=== PATIENT | male | born 1965 | race Caucasian/White ===

== ENCOUNTER 2016-11-10 12:16 | Outpatient (CLI) | payer MEDICAID | END 2016-11-10 12:17 | disposition home or self-care (01) | DX: R73.09 Other abnormal glucose (principal) ==

== ENCOUNTER 2016-12-18 | Outpatient (CLI) | payer MEDICAID | END 2016-12-18 11:49 | disposition home or self-care (01) | DX: R00.1 Bradycardia, unspecified (principal) ==

== ENCOUNTER 2017-03-25 10:40 | Outpatient (CLI) | payer MEDICAID ==
[2017-03-25 18:16] LABS: ALBUMIN/GLOBULIN RATIO 1.2 (1.0-2.2); BILIRUBIN,TOTAL 0.6 mg/dL (0.2-1.0); BUN - BLOOD UREA NITROGEN 22 mg/dL (6-20); CARBON DIOXIDE - CO2 25 mmol/L (21-32); CHLORIDE 107 mmol/L (101-111); CHOL/HDL RATIO 3.9 (<5.0); CHOLESTEROL 137 mg/dL; CREATININE 0.9 mg/dL (0.6-1.2); GFR - MDRD 89 (>89); GLUCOSE 106 mg/dL (70-100); HDL CHOLESTEROL 35 mg/dL; LDL/HDL RATIO 2.4 (<3.6); POTASSIUM 4.1 mmol/L (3.5-5.0); SODIUM 138 mmol/L (135-145); TOTAL PROTEIN 6.9 g/dL (6.7-8.2); TRIGLYCERIDES 97 mg/dL; VLDL CHOLESTEROL 19 mg/dL
[2017-03-25 18:22] LABS: BASOPHILS % (AUTO) 0.4 %; EOSINOPHILS # (AUTO) 0.1 10^3/uL (0.0-0.7); EOSINOPHILS % (AUTO) 1.4 %; HCT - HEMATOCRIT 43.8 % (42.0-52.0); HGB - HEMOGLOBIN 15.1 g/dL (14.0-18.0); LYMPHOCYTES # (AUTO) 2.2 10^3/uL (1.5-3.5); LYMPHOCYTES % (AUTO) 26.3 %; MEAN CORPUSCULAR HEMOGLOBIN 29.7 pg (27.0-31.0); MEAN CORPUSCULAR HGB CONC 34.4 g/dL (32.0-36.0); MEAN CORPUSCULAR VOLUME 86.2 fL (80.0-94.0); MEAN PLATELET VOLUME 8.1 fL (7.4-11.4); MONOCYTES # (AUTO) 0.6 10^3/uL (0.0-1.0); NEUTROPHILS # (AUTO) 5.4 10^3/uL (1.5-6.6); NEUTROPHILS % (AUTO) 64.9 %; NUCLEATED RED BLOOD CELLS AUTO 0.1 /100WBC; RED BLOOD COUNT 5.08 10^6/uL (4.70-6.10); RED CELL DISTRIBUTION WIDTH 13.6 % (12.0-15.0); UNCORRECTED WHITE BLOOD COUNT 8.3 x10^3/uL; WHITE BLOOD COUNT 8.3 x10^3/uL (4.8-10.8)
[2017-03-25 18:29] LABS: HEMOGLOBIN A1C 0.62 g/dL
== END 2017-03-25 10:41 | disposition home or self-care (01) ==
LOC: LAB.F 10:40
PROVIDERS: ATTEND Nurse Practitioner Family
DX: R35.1 Nocturia (principal); Z13.220 Encounter for screening for lipoid disorders; R73.09 Other abnormal glucose; Z12.5 Encounter for screening for malignant neoplasm of prostate
CPT/HCPCS: 36415; 80050; 80061; 83036; 84153

== ENCOUNTER 2017-05-04 08:00 | Outpatient (CLI) | payer MEDICAID | END 2017-05-04 08:01 | disposition home or self-care (01) | DX: R73.09 Other abnormal glucose (principal) ==

== ENCOUNTER 2017-09-07 08:00 | Outpatient (CLI) | payer MEDICAID ==
[2017-09-07 18:49] LABS: ALBUMIN/GLOBULIN RATIO 1.3 (1.0-2.2); BILIRUBIN,TOTAL 0.7 mg/dL (0.2-1.0); CALCIUM 9.6 mg/dL (8.5-10.3); CREATININE 1.1 mg/dL (0.6-1.2); POTASSIUM 3.7 mmol/L (3.5-5.0); TOTAL PROTEIN 7.3 g/dL (6.7-8.2)
[2017-09-07 19:12] LABS: HEMOGLOBIN A1C 0.6 g/dL
== END 2017-09-07 08:01 | disposition home or self-care (01) ==
LOC: LAB.S 08:00
PROVIDERS: ATTEND Nurse Practitioner Family
DX: R60.0 Localized edema (principal); R73.03 Prediabetes
CPT/HCPCS: 36415; 80053; 83036; 83880

== ENCOUNTER 2018-02-03 12:00 | Outpatient (CLI) | payer MEDICAID ==
--- NOTE | 2018-02-03 13:27 | XRAY Report ---
COMPLETE CERVICAL SPINE WITH FLEXION AND EXTENSION: 02/03/2018 CLINICAL INDICATION: Neck stiffness. FINDINGS: AP, lateral neutral, lateral flexion, lateral extension, oblique, odontoid views of the cervical spine were obtained. There is no evidence of fracture or subluxation. No abnormal motion is seen on flexion or extension. Degenerative disc disease is present, with disc space narrowing worst at C5-6. There is mild bilateral osseous neural foraminal narrowing at C5-6 and C6-7. The prevertebral soft tissues appear unremarkable. IMPRESSION: DEGENERATIVE CHANGES, WITH MILD OSSEOUS NEURAL FORAMINAL NARROWING. NO EVIDENCE OF ABNORMAL MOTION ON FLEXION OR EXTENSION. TD: 02/03/2018 13:26
== END 2018-02-03 12:01 | disposition home or self-care (01) ==
LOC: DI 12:00
PROVIDERS: ATTEND Nurse Practitioner Family
DX: M50.30 Other cervical disc degeneration, unspecified cervical region (principal)
CPT/HCPCS: 72052

== ENCOUNTER 2018-02-24 13:25 | Outpatient (CLI) | payer MEDICAID ==
[2018-02-24 19:59] LABS: CHOL/HDL RATIO 4.5 (<5.0); CHOLESTEROL 154 mg/dL; HDL CHOLESTEROL 34 mg/dL; LDL CHOLESTEROL,CALCULATED 101 mg/dL; VLDL CHOLESTEROL 19 mg/dL
[2018-02-24 20:08] LABS: HB2 TOTAL 17.2 g/dL; HEMOGLOBIN A1C 0.63 g/dL; HEMOGLOBIN A1C % 5.5 % (4.6-6.2)
== END 2018-02-24 13:26 | disposition home or self-care (01) ==
LOC: LAB.N 13:25
PROVIDERS: ATTEND Registered Nurse
DX: F25.9 Schizoaffective disorder, unspecified (principal)
CPT/HCPCS: 36415; 80061; 83036; 83721

== ENCOUNTER 2019-05-23 08:00 | Outpatient (CLI) | payer MEDICAID ==
[2019-05-23 18:33] LABS: BASOPHILS # (AUTO) 0.1 10^3/uL (0.0-0.1); BASOPHILS % (AUTO) 0.6 %; EOSINOPHILS # (AUTO) 0.1 10^3/uL (0.0-0.7); EOSINOPHILS % (AUTO) 1.4 %; HGB - HEMOGLOBIN 14.7 g/dL (14.0-18.0); LYMPHOCYTES # (AUTO) 2.5 10^3/uL (1.5-3.5); MEAN CORPUSCULAR HEMOGLOBIN 29.2 pg (27.0-31.0); MEAN CORPUSCULAR HGB CONC 33.1 g/dL (32.0-36.0); MEAN CORPUSCULAR VOLUME 88.3 fL (80.0-94.0); MEAN PLATELET VOLUME 9.3 fL (7.4-11.4); MONOCYTES # (AUTO) 0.6 10^3/uL (0.0-1.0); MONOCYTES % (AUTO) 6.1 %; NEUTROPHILS # (AUTO) 5.8 10^3/uL (1.5-6.6); NEUTROPHILS % (AUTO) 64.2 %; PLT - PLATELET COUNT 303 10^3/uL (130-450); RED BLOOD COUNT 5.03 10^6/uL (4.70-6.10); RED CELL DISTRIBUTION WIDTH 13.2 % (12.0-15.0); WHITE BLOOD COUNT 9.1 x10^3/uL (4.8-10.8)
[2019-05-23 18:43] LABS: HEMOGLOBIN A1C 0.59 g/dL; HEMOGLOBIN A1C % 5.5 % (4.6-6.2)
[2019-05-23 18:44] LABS: ALBUMIN 3.8 g/dL (3.2-5.5); ALBUMIN/GLOBULIN RATIO 1.1 (1.0-2.2); ALKALINE PHOSPHATASE 61 IU/L (42-121); ALT ALANINE AMINOTRANSFERASE 29 IU/L (10-60); AST ASPARTATE AMINOTRANSFERASE 22 IU/L (10-42); BILIRUBIN,TOTAL 0.7 mg/dL (0.2-1.0); BUN - BLOOD UREA NITROGEN 17 mg/dL (6-20); CALCIUM 9.1 mg/dL (8.5-10.3); CARBON DIOXIDE - CO2 24 mmol/L (21-32); CHLORIDE 103 mmol/L (101-111); CHOL/HDL RATIO 5.4 (<5.0); CHOLESTEROL 157 mg/dL; GFR - MDRD 78 (>89); GLUCOSE 113 mg/dL (70-100); HDL CHOLESTEROL 29 mg/dL; LDL CHOLESTEROL,CALCULATED 93 mg/dL; LDL/HDL RATIO 3.2 (<3.6); SODIUM 137 mmol/L (135-145); TOTAL PROTEIN 7.4 g/dL (6.7-8.2); VLDL CHOLESTEROL 35 mg/dL
== END 2019-05-23 08:01 | disposition home or self-care (01) ==
LOC: LAB.N 08:00
PROVIDERS: ATTEND Psychiatry & Neurology Psychiatry
DX: F33.3 Major depressive disorder, recurrent, severe with psychotic symptoms (principal); F43.10 Post-traumatic stress disorder, unspecified
CPT/HCPCS: 36415; 80053; 80061; 83036; 83721; 85025

== ENCOUNTER 2019-05-25 | Outpatient (CLI) | payer MEDICAID | END 2019-05-25 15:25 | disposition home or self-care (01) | DX: M47.817 Spondylosis without myelopathy or radiculopathy, lumbosacral region (principal); M51.36 Other intervertebral disc degeneration, lumbar region; M51.37 Other intervertebral disc degeneration, lumbosacral region | CPT/HCPCS: 72110 ==

== ENCOUNTER 2019-06-24 08:00 | Outpatient (CLI) | payer MEDICAID | END 2019-06-24 23:59 | disposition home or self-care (01) | LOC: LAB.N 08:00 | PROVIDERS: ATTEND Family Medicine | DX: Z12.5 Encounter for screening for malignant neoplasm of prostate (principal) | CPT/HCPCS: 36415; 84153 ==

== ENCOUNTER 2020-10-20 13:17 | Emergency (ER) | payer MEDICAID ==
[2020-10-20] MEDS ORDERED: BUFFERED LIDOCAINE 10 ML SYRINGE SUBQ STA (14:51)
[2020-10-20] MEDS ORDERED: AMOX/CLAV 875 MG/125 MG TABLET PO STA (14:53)
--- NOTE | 2020-10-20 15:43 | ED Physician Documentation ---
History of Present Illness - Stated complaint Stated Complaint: LT FACE SWELLING - Chief complaint Chief Complaint: Heent - History obtained from History obtained from: Patient - Additonal information Additional information: 55-year-old man with poor dentition presents with left lower facial swelling a/w left lower molar pain, constant aching/throbbing, nonradiating, gradual onset over the past couple days.Denies fevers, difficulty secretions, swallowing difficulty, shortness of breath or stridor. Review of Systems Constitutional: denies: Fever, Chills Throat: denies: Sore throat Respiratory: denies: Dyspnea, Cough, Wheezing PD PAST MEDICAL HISTORY - Past Medical History Past Medical History: Yes Cardiovascular: None, Other Respiratory: COPD, Sleep apnea, Other Neuro: None GI: Ulcers, Hiatal hernia, Chronic constipation, Hemorrhoids : None HEENT: None Psych: Depression Musculoskeletal: None, Other Derm: None - Past Surgical History Past Surgical History: Yes General: Colonoscopy, EGD - Present Medications Home Medications: Ambulatory Orders Medication Instructions Recorded Confirmed Albuterol [Ventolin Hfa] 1 inhaler PO DAILY PRN 05/18/15 12/25/15 Fluticasone 44 Mcg [Flovent] 1 puffs PO DAILY 08/13/16 08/13/16 Fluticasone [Flonase] 1 sprays CLINT BID PRN #1 bottle 08/13/16 Amox/Clav 875/125 [Augmentin] 1 each PO Q12H 7 Days #14 tablet 10/20/20 Omeprazole 10/20/20 Paliperidone [Invega] 3 mg PO 10/20/20 busPIRone [Buspar] 10/20/20 traZODone [Desyrel] 10/20/20 - Allergies Allergies/Adverse Reactions: Allergies Allergy/AdvReac Type Severity Reaction Status Date / Time haloperidol [From Haldol] Allergy Anaphylaxis Verified 10/20/20 13:26 metformin Allergy Cramps Verified 10/20/20 13:26 - Social History Does the pt smoke?: No Smoking Status: Never smoker Does the pt drink ETOH?: No Does the pt have substance abuse?: No - Immunizations Immunizations are current?: Yes - POLST Patient has POLST: No PD ED PE NORMAL - Vitals Vital signs reviewed: Yes - General General: Alert and oriented X 3 - HEENT HEENT: PERRL, EOMI, Moist mucous membranes, Pharynx benign, Other (Poor dentition. Multiple missing teeth. Left lower molar odontogenic swelling and fluctuance.) Results - Vitals Vitals: Vital Signs - 24 hr 10/20/20 13:22 Temperature 35.9 C L Heart Rate 68 Respiratory 20 Rate Blood Pressure 126/83 H O2 Saturation 96 Oxygen O2 Source Room air Procedures - Abscess I&D (location) left Preparation: Lidocaine 1% Incision: Incised with scalpel, Purulent drainage Other: Pt tolerated well, Antibiotic prescribed, Other (Left lower molar odontogenic abscess) PD MEDICAL DECISION MAKING - ED course ED course: 55-year-old man presented with dental abscess which we incised and drained. He will follow up with his primary doctor. Antibiotics prescribed. Departure - Departure Disposition: , Self Care Clinical Impression: Dental abscess Condition: Good Instructions: ED Abscess Dental Prescriptions: Amox/Clav 875/125 [Augmentin] 1 each PO Q12H 7 Days #14 tablet Comments: You have been seen for a dental abscess. Return to the ED for any new or wor sening symptoms. Follow-up with your dentist on Thursday.
[2020-10-20 15:56] VITALS: BP 160/93
== END 2020-10-20 16:00 | disposition home or self-care (01) ==
LOC: ED 13:17
DX: K04.7 Periapical abscess without sinus (principal)
CPT/HCPCS: 41800; 99282; 99283; A9270

== ENCOUNTER 2021-04-25 14:08 | Outpatient (CLI) | payer MEDICAID ==
[2021-04-25 17:54] LABS: BASOPHILS # (AUTO) 0.1 10^3/uL (0.0-0.1); BASOPHILS % (AUTO) 0.6 %; EOSINOPHILS # (AUTO) 0.2 10^3/uL (0.0-0.7); EOSINOPHILS % (AUTO) 1.8 %; HCT - HEMATOCRIT 43.2 % (42.0-52.0); HGB - HEMOGLOBIN 14.9 g/dL (14.0-18.0); LYMPHOCYTES # (AUTO) 2.9 10^3/uL (1.5-3.5); LYMPHOCYTES % (AUTO) 28.1 %; MEAN CORPUSCULAR HEMOGLOBIN 29.3 pg (27.0-31.0); MEAN CORPUSCULAR HGB CONC 34.5 g/dL (32.0-36.0); MEAN PLATELET VOLUME 9.4 fL (7.4-11.4); MONOCYTES # (AUTO) 0.7 10^3/uL (0.0-1.0); MONOCYTES % (AUTO) 6.4 %; NEUTROPHILS # (AUTO) 6.4 10^3/uL (1.5-6.6); PLT - PLATELET COUNT 295 10^3/uL (130-450); RED BLOOD COUNT 5.08 10^6/uL (4.70-6.10); RED CELL DISTRIBUTION WIDTH 13.4 % (12.0-15.0); WHITE BLOOD COUNT 10.2 x10^3/uL (4.8-10.8)
[2021-04-25 18:13] LABS: ALBUMIN/GLOBULIN RATIO 1.1 (1.0-2.2); ALKALINE PHOSPHATASE 58 IU/L (42-121); ALT ALANINE AMINOTRANSFERASE 35 IU/L (10-60); AST ASPARTATE AMINOTRANSFERASE 26 IU/L (10-42); BILIRUBIN,TOTAL 0.8 mg/dL (0.2-1.0); BUN - BLOOD UREA NITROGEN 16 mg/dL (6-20); CALCIUM 9.1 mg/dL (8.5-10.3); CARBON DIOXIDE - CO2 25 mmol/L (21-32); CHLORIDE 103 mmol/L (101-111); CHOL/HDL RATIO 4.9 (<5.0); CHOLESTEROL 153 mg/dL; GFR - MDRD 78 (>89); GLUCOSE 107 mg/dL (70-100); HDL CHOLESTEROL 31 mg/dL; LDL CHOLESTEROL,CALCULATED 88 mg/dL; LDL/HDL RATIO 2.8 (<3.6); POTASSIUM 3.9 mmol/L (3.5-5.0); SODIUM 136 mmol/L (135-145); TOTAL PROTEIN 7.5 g/dL (6.7-8.2); TRIGLYCERIDES 168 mg/dL; VLDL CHOLESTEROL 34 mg/dL
[2021-04-25 18:27] LABS: THYROID STIMULATING HORMONE 1.19 uIU/mL (0.34-5.60)
[2021-04-25 20:44] LABS: ESTIMATED AVERAGE GLUCOSE 126 mg/dL (70-100)
== END 2021-04-25 23:59 | disposition home or self-care (01) ==
LOC: LAB.WCP 14:08
PROVIDERS: ATTEND Family Medicine
DX: Z79.899 Other long term (current) drug therapy (principal); Z12.5 Encounter for screening for malignant neoplasm of prostate
CPT/HCPCS: 36415; 80050; 80061; 83036; 83721; 84153

== ENCOUNTER 2021-09-27 22:39 | Outpatient (CLI) | payer MEDICAID | END 2021-09-27 22:40 | disposition EMS.NT | LOC: EMS 22:39 | DX: F41.9 Anxiety disorder, unspecified (principal) ==

== ENCOUNTER 2021-10-01 16:30 | Outpatient (CLI) | payer MEDICAID ==
[2021-10-01 22:14] LABS: BILIRUBIN,URINE NEGATIVE (NEGATIVE); GLUCOSE, URINE (UA) NEGATIVE (NEGATIVE); KETONES,URINE (UA) NEGATIVE (NEGATIVE); LEUKOCYTE ESTERASE, URINE NEGATIVE (NEGATIVE); NITRITE,URINE NEGATIVE (NEGATIVE); OCCULT BLOOD,URINE NEGATIVE (NEGATIVE); PROTEIN,URINE NEGATIVE (NEGATIVE); UROBILINOGEN,URINE 0.2 (NORMAL) E.U./dL (NORMAL)
[2021-10-01 22:33] LABS: AMORPHOUS SEDIMENT,UR Marked /LPF; BACTERIA,URINE None Seen /HPF (None Seen); CLARITY,URINE CLOUDY (CLEAR); RBC,URINE 0-5 /HPF (0-5); SQUAMOUS EPITHELIAL CELL,UR NONE SEEN (<= Few); WBC,URINE 0-3 /HPF (0-3)
== END 2021-10-01 23:59 | disposition home or self-care (01) ==
LOC: LAB.WCP 16:30
PROVIDERS: ATTEND Family Medicine
DX: R35.0 Frequency of micturition (principal)
CPT/HCPCS: 81001; 87086

== ENCOUNTER 2021-11-08 08:39 | Outpatient (CLI) | payer MEDICAID ==
--- NOTE | 2021-11-11 08:57 | Ultrasound Report ---
LIMITED ULTRASOUND OF RIGHT BREAST: 11/08/2021 CLINICAL: Palpable right breast lump. Comparison is made to exam dated: 11/08/2021 mammogram - [facility]. Real-time ultrasound of the right breast retroareolar was performed. Stephens scale images of the real-t rene examination were reviewed. There is a benign irregular area of fibroglandular tissue in the right breast central to the nipple i n the retroareolar region. This correlates as palpated. There are a few prominent retroareolar ducts . The patient denies nipple discharge. IMPRESSION: BENIGN There is no sonographic evidence of malignancy. The irregular area of fibroglandular tissue in the right breast is consistent with benign gynecomasti a. No underlying mass. Exam findings were discussed with the patient. Patient is advised to monitor for significant change. Clinical follow-up is recommended to network security officer for possible underlying cause such as medications a nd liver disease. This exam was interpreted at Station ID: [id number]. Electronically Signed By: Ash Verdugo M.D. slc/:11/08/2021 10:06:59 Ultrasound BI-RADS: 2 Benign BI-RADS CATEGORY: (2) - 2 Unspecified - other recall n/a LATERALITY: (B)
--- NOTE | 2021-11-11 08:57 | Mammography Report ---
MALE BILATERAL DIGITAL DIAGNOSTIC MAMMOGRAM 3D/2D: 11/08/2021 CLINICAL: Baseline exam. Palpable right breast lump. Baseline mammogram. No prior exams were available for comparison. There is a 5.5 cm x 4.8 cm x 3.6 cm irregular area of fibroglandular tissue with an indistinct margin in the right breast central to the nipple in the retroareolar region. This correlates as palpated a nd to area of tenderness. No other significant masses, calcifications, or other findings are seen in either breast. IMPRESSION: INCOMPLETE: NEEDS ADDITIONAL IMAGING EVALUATION The 5.5 cm irregular area of fibroglandular tissue in the right breast is most consistent with asymme tric gynecomastia. A targeted ultrasound is recommended to exclude underlying mass and will immediately follow. This exam was interpreted at Station ID: [id number]. NOTE: For mammograms, a report in lay terms will be sent to the patient. Approximately 15% of breast malignancies will not be visualized mammographically. In the management of a palpable breast mass, a negative mammogram must not discourage biopsy of a clinically suspicious lesion. Electronically Signed By: Ash Verdugo M.D. slc/:11/08/2021 09:38:57 ACR BI-RADS Category 0: Incomplete 3340F PARENCHYMAL PATTERN: (F) - The breast(s) demonstrate(s) diffuse fatty replacement. BI-RADS CATEGORY: (0) - 0 Ultrasound [id number] Immediate follow-up LATERALITY: (B)
== END 2021-11-08 08:40 | disposition home or self-care (01) ==
LOC: DI 08:39
PROVIDERS: ATTEND Family Medicine
DX: N63.41 Unspecified lump in right breast, subareolar (principal)

== ENCOUNTER 2022-02-05 13:33 | Outpatient (CLI) | payer MEDICAID | END 2022-02-05 13:34 | disposition home or self-care (01) | LOC: NS 13:33 | PROVIDERS: ATTEND Family Medicine | DX: Z71.3 Dietary counseling and surveillance (principal); K31.84 Gastroparesis | CPT/HCPCS: 97802 ==

== ENCOUNTER 2022-03-10 14:36 | Emergency (ER) | payer MEDICAID ==
[2022-03-10 14:44] VITALS: BP 133/90
--- NOTE | 2022-03-10 15:17 | ED Physician Documentation ---
History of Present Illness - Stated complaint Stated Complaint: HAND/JAW SWELLING - Chief complaint Chief Complaint: General - History obtained from History obtained from: Patient - History of Present Illness Timing: Today - Additonal information Additional information: 57-year-old Eloy Duong has a history of schizophrenia and today he was stretching and felt the side of his face and felt a tender mass on the right side and this has persisted and so he is come to the emergency department for evaluation. He has not had a fever associated with this he denies any pain inside of his mouth or any problems with his teeth. He feels that he might have some swelling to his right hand as well. Review of Systems Constitutional: denies: Fever Eyes: denies: Decreased vision Ears: denies: Ear pain Nose: denies: Congestion Throat: denies: Dental pain / toothache, Oral lesions / sores, Sore throat Cardiac: denies: Chest pain / pressure Respiratory: denies: Dyspnea, Cough GI: reports: Vomiting (Every morning at 9 AM secondary to gastroparesis). denies: Abdominal Pain, Diarrhea : denies: Dysuria, Frequency Skin: denies: Rash Musculoskeletal: denies: Neck pain, Back pain, Extremity pain PD PAST MEDICAL HISTORY - Past Medical History Cardiovascular: None, Other Respiratory: COPD, Sleep apnea, Other Neuro: None GI: Ulcers, Hiatal hernia, Chronic constipation, Hemorrhoids : None HEENT: None Psych: Depression Musculoskeletal: None, Other Derm: None - Past Surgical History Past Surgical History: Yes General: Colonoscopy, EGD - Present Medications Home Medications: Ambulatory Orders Medication Instructions Recorded Confirmed Albuterol [Ventolin Hfa] 1 inhaler PO DAILY PRN 05/18/15 12/25/15 Fluticasone 44 Mcg [Flovent] 1 puffs PO DAILY 08/13/16 08/13/16 Fluticasone [Flonase] 1 sprays CLINT BID PRN #1 bottle 08/13/16 Amox/Clav 875/125 [Augmentin] 1 each PO Q12H 7 Days #14 tablet 10/20/20 Omeprazole 10/20/20 Paliperidone [Invega] 3 mg PO 10/20/20 busPIRone [Buspar] 10/20/20 traZODone [Desyrel] 10/20/20 Amox/Clav 875/125 [Augmentin] 1 each PO Q12H #20 tablet 03/10/22 - Allergies Allergies/Adverse Reactions: Allergies Allergy/AdvReac Type Severity Reaction Status Date / Time haloperidol [From Haldol] Allergy Anaphylaxis Verified 03/10/22 14:41 metformin Allergy Cramps Verified 03/10/22 14:41 - Social History Does the pt smoke?: No Smoking Status: Never smoker Does the pt drink ETOH?: No Does the pt have substance abuse?: No - Immunizations Immunizations are current?: Yes - POLST Patient has POLST: No PD ED PE NORMAL - Vitals Vital signs reviewed: Yes (Hypertensive mild) - General General: Alert and oriented X 3, No acute distress, Well developed/nourished - HEENT HEENT: Atraumatic, PERRL, EOMI, Ears normal, Moist mucous membranes, Pharynx benign, Other (There is a broken right lower molar that is nontender and without drainage. Examination inside the mouth is without out tenderness as well. At the angle of the jaw there is a firm palpable mass consistent with a lymph node. There is no overlying erythema there is no fluctuance and mild tenderness) - Neck Neck: Supple, no meningeal sign, No bony TTP - Respiratory Respiratory: No respiratory distress - Derm Derm: Normal color, Warm and dry, No rash - Extremities Extremities: No deformity, Other (I am not able to appreciate any difference between the right and the left hand as far as swelling goes there is no erythema there is no specific tenderness he has full range of motion. 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, No motor deficit, No sensory deficit, Normal speech Eye Opening: Spontaneous Motor: Obeys Commands Verbal: Oriented GCS Score: 15 - Psych Psych: Normal mood, Normal affect Results - Vitals Vitals: Vital Signs - 24 hr 03/10/22 14:41 Temperature 36.5 C Heart Rate 60 Respiratory 16 Rate Blood Pressure 133/90 H O2 Saturation 97 Oxygen O2 Source Room air PD MEDICAL DECISION MAKING - ED course Complexity details: considered differential, d/w patient ED course: 57-year-old male with a swelling at the angle of his jaw appears to have a swollen lymph node he is treated for lymphangitis with a dose of dexamethasone we will place him on some Augmentin. Departure - Departure Disposition: 01 Home, Self Care Clinical Impression: Lymphangitis Condition: Stable Instructions: ED Lymphangitis Follow-Up: Jovana Lim DO [Primary Care Provider] - Prescriptions: Amox/Clav 875/125 [Augmentin] 1 each PO Q12H #20 tablet Comments: Crescencio, today it looks like the small mass you have at the angle of your jaw is a swollen lymph node. We call this lymphangitis and I have given you a dose of dexamethasone which should help us the swelling over the day today. I have prescribed some antibiotic to be taken twice per day as well. This has been E scribed to [facility] in [place]. Our expectation with treatment is reduction in the swelling and resolution of the pain over a 2 to 3-day period of time. If you have worsening of your symptoms despite our treatment come back to see us here in the emergency department.
[2022-03-10] MEDS ORDERED: DEXAMETHASONE 10 MG/ML VIAL PO STA (15:21)
[2022-03-10] MEDS ORDERED: CHERRY SYRUP 10 ML UDC PO ONE (15:21)
== END 2022-03-10 15:31 | disposition home or self-care (01) ==
LOC: ED 14:36
DX: I89.1 Lymphangitis (principal)
CPT/HCPCS: 99282; A9270

== ENCOUNTER 2022-07-30 15:09 | Outpatient (CLI) | payer MEDICAID ==
--- NOTE | 2022-07-30 16:36 | MRI Report ---
PROCEDURE: Lumbar Spine W/O INDICATIONS: L SPINE DJD, HIST OF FALLS TECHNIQUE: Noncontrast sagittal T1 spin echo and T2 fast echo, sagittal STIR, axial T1 and T2 fast spin echo thr ough the lumbar spine. In cases with scoliosis, additional coronal T2 fast spin echo may be performe d. COMPARISON: None. FINDINGS: Image quality: Excellent Alignment: No spondylolisthesis. Marrow: No acute fracture. Scattered endplate degenerative changes. Multilevel disc desiccation and h eight loss, particularly at L3-L4 and L5-S1. Cord: Terminates at L1, which is normal. Soft tissues: Unremarkable Specific levels: T12-L1: No stenosis. L1-L2: Small diffuse disc bulge and mild facet arthropathy. No stenosis. L2-L3: Small diffuse disc bulge and mild facet arthropathy. No stenosis. L3-L4: There is a small posterior disc bulge with a superimposed posterior protrusion. Mild narrowing of the left subarticular recess. The protrusion has an annular fissure. Mild to moderate facet arthr opathy. No neural foraminal stenosis. L4-L5: Small ventral disc bulge. Mild to moderate facet arthropathy. Minimal bilateral neural foramin al narrowing. L5-S1: Diffuse disc bulge, including the right extraforaminal zone. Mild facet arthropathy. No centra l narrowing. IMPRESSION: Overall mild spondylosis as described above. By imaging, L3-L4 is the worst level with m ild left subarticular recess (traversing L4 nerve root), disc bulge and posterior protrusion, and an annular fissure. There might also be right L5-S1 extra foraminal displacement of the exiting L5 nerve root. Reviewed by: Juanpablo Thomas MD on 07/30/2022 4:34 PM PDT Approved by: Juanpablo Thomas MD on 07/30/2022 4:34 PM PDT Station ID: [id number]
== END 2022-07-30 15:10 | disposition home or self-care (01) ==
LOC: DI 15:09
PROVIDERS: ATTEND Nurse Practitioner Family
DX: M51.16 Intervertebral disc disorders with radiculopathy, lumbar region (principal); M51.17 Intervertebral disc disorders with radiculopathy, lumbosacral region; M47.26 Other spondylosis with radiculopathy, lumbar region; M47.27 Other spondylosis with radiculopathy, lumbosacral region

== ENCOUNTER 2022-12-12 15:10 | Outpatient (CLI) | payer MEDICAID ==
[2022-12-12 17:40] LABS: BASOPHILS # (AUTO) 0.1 10^3/uL (0.0-0.1); BASOPHILS % (AUTO) 0.6 %; EOSINOPHILS # (AUTO) 0.2 10^3/uL (0.0-0.7); EOSINOPHILS % (AUTO) 2.5 %; HCT - HEMATOCRIT 42.3 % (42.0-52.0); HGB - HEMOGLOBIN 14.5 g/dL (14.0-18.0); LYMPHOCYTES # (AUTO) 3.1 10^3/uL (1.5-3.5); LYMPHOCYTES % (AUTO) 32.1 %; MEAN CORPUSCULAR HEMOGLOBIN 29.1 pg (27.0-31.0); MEAN CORPUSCULAR HGB CONC 34.3 g/dL (32.0-36.0); MEAN CORPUSCULAR VOLUME 84.8 fL (80.0-94.0); MEAN PLATELET VOLUME 9.1 fL (7.4-11.4); MONOCYTES # (AUTO) 0.6 10^3/uL (0.0-1.0); MONOCYTES % (AUTO) 6.1 %; NEUTROPHILS # (AUTO) 5.7 10^3/uL (1.5-6.6); NEUTROPHILS % (AUTO) 57.7 %; PLT - PLATELET COUNT 335 10^3/uL (130-450); RED BLOOD COUNT 4.99 10^6/uL (4.70-6.10); RED CELL DISTRIBUTION WIDTH 13.4 % (12.0-15.0); WHITE BLOOD COUNT 9.8 x10^3/uL (4.8-10.8)
[2022-12-12 18:03] LABS: ALBUMIN 3.7 g/dL (3.2-5.5); ALBUMIN/GLOBULIN RATIO 1.1 (1.0-2.2); ALKALINE PHOSPHATASE 74 IU/L (42-121); ALT ALANINE AMINOTRANSFERASE 29 IU/L (10-60); AST ASPARTATE AMINOTRANSFERASE 22 IU/L (10-42); BILIRUBIN,TOTAL 0.3 mg/dL (0.2-1.0); BUN - BLOOD UREA NITROGEN 18 mg/dL (6-20); CALCIUM 8.8 mg/dL (8.5-10.3); CARBON DIOXIDE - CO2 23 mmol/L (21-32); CHLORIDE 104 mmol/L (101-111); CHOL/HDL RATIO 5.2 (<5.0); CHOLESTEROL 140 mg/dL; GFR - MDRD 77 (>89); GLUCOSE 109 mg/dL (70-100); HDL CHOLESTEROL 27 mg/dL; LDL CHOLESTEROL,CALCULATED 66 mg/dL; LDL/HDL RATIO 2.4 (<3.6); POTASSIUM 3.7 mmol/L (3.5-5.0); SODIUM 134 mmol/L (135-145); TOTAL PROTEIN 7.2 g/dL (6.7-8.2); TRIGLYCERIDES 237 mg/dL; VLDL CHOLESTEROL 47 mg/dL
[2022-12-12 18:04] LABS: THYROID STIMULATING HORMONE 0.99 uIU/mL (0.34-5.60)
[2022-12-12 22:03] LABS: ESTIMATED AVERAGE GLUCOSE 131 mg/dL (70-100); HEMOGLOBIN A1c% 6.2 % (4.27-6.07)
== END 2022-12-12 15:11 | disposition home or self-care (01) ==
LOC: LAB.N 15:10
PROVIDERS: ATTEND Nurse Practitioner Family
DX: Z00.00 Encounter for general adult medical examination without abnormal findings (principal); R73.03 Prediabetes; Z13.220 Encounter for screening for lipoid disorders
CPT/HCPCS: 36415; 80050; 80061; 83036; 83721; 84153

== ENCOUNTER 2023-08-30 23:50 | Outpatient (CLI) | payer MEDICAID | END 2023-08-30 23:59 | disposition critical access hospital (66) | LOC: EMS 23:50 | DX: R07.89 Other chest pain (principal); R46.4 Slowness and poor responsiveness | CPT/HCPCS: A0425; A0429; A0999 ==

== ENCOUNTER 2023-08-31 00:08 | Emergency (ER) | payer MEDICAID ==
[2023-08-31 00:26] LABS: BASOPHILS # (AUTO) 0.1 10^3/uL (0.0-0.1); BASOPHILS % (AUTO) 0.5 %; EOSINOPHILS # (AUTO) 0.3 10^3/uL (0.0-0.7); EOSINOPHILS % (AUTO) 2.4 %; HCT - HEMATOCRIT 43.8 % (42.0-52.0); HGB - HEMOGLOBIN 14.5 g/dL (14.0-18.0); LYMPHOCYTES # (AUTO) 4.5 10^3/uL (1.5-3.5); LYMPHOCYTES % (AUTO) 39.2 %; MEAN CORPUSCULAR HEMOGLOBIN 28.9 pg (27.0-31.0); MEAN CORPUSCULAR HGB CONC 33.1 g/dL (32.0-36.0); MEAN CORPUSCULAR VOLUME 87.4 fL (80.0-94.0); MEAN PLATELET VOLUME 8.7 fL (7.4-11.4); MONOCYTES # (AUTO) 0.9 10^3/uL (0.0-1.0); MONOCYTES % (AUTO) 7.8 %; NEUTROPHILS # (AUTO) 5.6 10^3/uL (1.5-6.6); NEUTROPHILS % (AUTO) 49.5 %; PLT - PLATELET COUNT 289 10^3/uL (130-450); RED BLOOD COUNT 5.01 10^6/uL (4.70-6.10); RED CELL DISTRIBUTION WIDTH 13.2 % (12.0-15.0); WHITE BLOOD COUNT 11.4 x10^3/uL (4.8-10.8)
[2023-08-31 00:40] LABS: ALBUMIN/GLOBULIN RATIO 1.3 (1.0-2.2); ALKALINE PHOSPHATASE 70 IU/L (42-121); ALT ALANINE AMINOTRANSFERASE 21 IU/L (10-60); AST ASPARTATE AMINOTRANSFERASE 19 IU/L (10-42); BILIRUBIN,TOTAL 0.3 mg/dL (0.2-1.0); BUN - BLOOD UREA NITROGEN 17 mg/dL (6-20); CALCIUM 9.3 mg/dL (8.5-10.3); CARBON DIOXIDE - CO2 25 mmol/L (21-32); CHLORIDE 104 mmol/L (101-111); CREATININE 0.8 mg/dL (0.6-1.3); GFR - MDRD 100 (>89); GLUCOSE 128 mg/dL (74-104); LIPASE < 10 U/L (11-82); POTASSIUM 3.9 mmol/L (3.5-4.5); SODIUM 136 mmol/L (135-145)
[2023-08-31 00:43] LABS: TROPONIN I HIGH SENSITIVITY 7.8 ng/L (2.3-19.7)
--- NOTE | 2023-08-31 00:44 | XRAY Report ---
PROCEDURE: Chest 1 View X-Ray INDICATIONS: chest pain TECHNIQUE: One view of the chest was acquired. COMPARISON: None. FINDINGS: Surgical changes and devices: None. Lungs and pleura: No pleural effusions or pneumothorax. Lungs are clear. Mediastinum: Mediastinal contours appear normal. Heart size is enlarged. Bones and chest wall: No suspicious bony lesions. Overlying soft tissues appear unremarkable. IMPRESSION: No acute cardiopulmonary process. Reviewed by: David Watts MD on 08/31/2023 12:42 AM [facility] Approved by: David Watts MD on 08/31/2023 12:42 AM [facility] Station ID: [id number]
--- NOTE | 2023-08-31 03:43 | ED Physician Documentation ---
History of Present Illness - Stated complaint Stated Complaint: CHEST DISCOMFORT - Chief complaint Chief Complaint: Cardiac - History obtained from History obtained from: Patient - Additonal information Additional information: The patient comes to the emergency department chief complaint of an episode of chest pressure. He states that he had just finished playing a video game called [employer], which she states is not a stressful game. He suddenly noticed that he felt an odd sense of pressure in his left chest. He states it reminds him of when his heart rate has gone down to around 30 in the past and it felt similar. Patient denies any nausea, diaphoresis, or shortness of breath. He states that after a minute or two, the symptoms passed and now he feels perfectly normal. The patient states he has chronic bradycardia but is usually in the 40s. Occasionally, his heart rate will drop down to around 30 and that is just something that he deals with occasionally. He denies any history of [place] in himself or his family. No diagnosis of coronary artery disease. The patient states he quit smoking in 1991. He denies any high blood pressure or diabetes. No new swelling or pain in his lower extremities. No cough or fever. No other complaints at this time. PD PAST MEDICAL HISTORY - Past Medical History Cardiovascular: None, Other Respiratory: COPD, Sleep apnea, Other Neuro: None GI: Ulcers, Hiatal hernia, Chronic constipation, Hemorrhoids : None HEENT: None Psych: Depression Musculoskeletal: None, Other Derm: None - Past Surgical History Past Surgical History: Yes General: Colonoscopy, EGD - Present Medications Home Medications: Ambulatory Orders Medication Instructions Recorded Confirmed Albuterol [Ventolin Hfa] 1 inhaler PO Q4HR PRN 05/18/15 08/31/23 Fluticasone 44 Mcg [Flovent] 1 puffs PO DAILY 08/13/16 08/31/23 Fluticasone [Flonase] 1 sprays CLINT BID PRN #1 bottle 08/13/16 08/31/23 Omeprazole 40 mg PO DAILY 10/20/20 08/31/23 traZODone [Desyrel] 100 mg PO HS 10/20/20 08/31/23 Benztropine Mesylate 2 mg PO HS 08/31/23 08/31/23 Buspirone HCl 15 mg PO TID 08/31/23 08/31/23 Montelukast [Singulair] 10 mg PO QPM 08/31/23 08/31/23 Paliperidone [Invega] 9 mg PO HS 08/31/23 08/31/23 Tamsulosin [Flomax] 0.4 mg PO BID 08/31/23 08/31/23 Venlafaxine HCl [Effexor Xr] 150 mg PO DAILY 08/31/23 08/31/23 - Allergies Allergies/Adverse Reactions: Allergies Allergy/AdvReac Type Severity Reaction Status Date / Time haloperidol [From Haldol] Allergy Anaphylaxis Verified 08/31/23 00:12 metformin Allergy Cramps Verified 08/31/23 00:12 - Social History Does the pt smoke?: No Smoking Status: Never smoker Does the pt drink ETOH?: No Does the pt have substance abuse?: No - Immunizations Immunizations are current?: Yes - POLST Patient has POLST: No PD ED PE NORMAL - Vitals Vital signs reviewed: Yes - General General: Alert and oriented X 3, No acute distress, Well developed/nourished - HEENT HEENT: Atraumatic, PERRL, EOMI, Moist mucous membranes - Neck Neck: Supple, no meningeal sign - Cardiac Cardiac: RRR, No murmur - Respiratory Respiratory: No respiratory distress, Clear bilaterally - Abdomen Abdomen: Soft, Non tender, Non distended - Derm Derm: Normal color, Warm and dry, No rash - Extremities Extremities: No deformity, No edema - Neuro Neuro: Alert and oriented X 3 - Psych Psych: Normal mood, Normal affect Results - Vitals Vitals: Vital Signs - 24 hr 08/31/23 08/31/23 08/31/23 00:13 00:30 01:00 Temperature 36.5 C Heart Rate 52 L 52 L 49 L Respiratory 18 20 18 Rate Blood Pressure 140/75 H 123/78 116/65 O2 Saturation 98 98 95 08/31/23 08/31/23 08/31/23 01:30 02:00 02:30 Temperature Heart Rate 48 L 45 L 43 L Respiratory 17 15 16 Rate Blood Pressure 115/71 105/61 116/78 O2 Saturation 96 95 96 08/31/23 08/31/23 08/31/23 03:00 03:30 04:00 Temperature Heart Rate 48 L 47 L 43 L Respiratory 16 16 17 Rate Blood Pressure 124/84 H 118/80 110/47 L O2 Saturation 98 97 96 Oxygen O2 Source Room air - Labs Labs: Laboratory Tests 08/31/23 08/31/23 08/31/23 00:10 00:10 02:12 WBC 11.4 H RBC 5.01 Hgb 14.5 Hct 43.8 MCV 87.4 MCH 28.9 MCHC 33.1 RDW 13.2 Plt Count 289 MPV 8.7 Neut # (Auto) 5.6 Lymph # (Auto) 4.5 H Boundary # (Auto) 0.9 Eos # (Auto) 0.3 Baso # (Auto) 0.1 Absolute Nucleated RBC 0.00 Nucleated RBC % 0.0 Sodium 136 Potassium 3.9 Chloride 104 Carbon Dioxide 25 Anion Gap 7.0 BUN 17 Creatinine 0.8 Estimated GFR (MDRD) 100 Glucose 128 H Calcium 9.3 Total Bilirubin 0.3 AST 19 ALT 21 Alkaline Phosphatase 70 Troponin I High Sens 7.8 8.2 Total Protein 7.0 Albumin 4.0 Globulin 3.0 Albumin/Globulin Ratio 1.3 Lipase < 10 L PD Medical Decision Making - ED course Complexity details: reviewed results, re-evaluated patient, considered differential, d/w patient ED course: The patient was worked up with laboratory studies, EKG, and chest x-ray all of which were unremarkable. Repeat troponin was not significantly changed. The patient was stable for discharge home. We have discussed home management of symptoms as well as the usual indications for return. Departure - Departure Disposition: 01 Home, Self Care Clinical Impression: Chest pain Qualifiers: Chest pain type: unspecified Qualified Code(s): R07.9 - Chest pain, unspecified Condition: Stable Instructions: ED Chest Pain Atypical Unkn Cause Comments: Your chest x-ray, EKG, and 2 sets of cardiac labs all look good. It is unclear exactly what caused the symptoms you have had tonight; it may be that your heart rate dropped low and gave you that funny feeling in your chest as has sometimes happen before. Please follow-up with your primary doctor for any further concerns. Forms: PCP List Discharge Date/Time: 08/31/23 04:07
[2023-08-31 04:10] VITALS: BP 110/47; O2SAT 96
== END 2023-08-31 04:07 | disposition home or self-care (01) ==
LOC: EDUNIT# → ED 00:08
DX: R07.9 Chest pain, unspecified (principal); Z87.891 Personal history of nicotine dependence
CPT/HCPCS: 36415; 80053; 83690; 84484; 85025; 93005; 99283; 99284

== ENCOUNTER 2023-10-05 13:42 | Outpatient (CLI) | payer MEDICAID ==
[2023-10-05 17:59] LABS: BASOPHILS # (AUTO) 0.1 10^3/uL (0.0-0.1); BASOPHILS % (AUTO) 0.8 %; EOSINOPHILS # (AUTO) 0.1 10^3/uL (0.0-0.7); EOSINOPHILS % (AUTO) 1.6 %; HCT - HEMATOCRIT 44.5 % (42.0-52.0); LYMPHOCYTES # (AUTO) 2.7 10^3/uL (1.5-3.5); LYMPHOCYTES % (AUTO) 30.3 %; MEAN CORPUSCULAR HEMOGLOBIN 29.4 pg (27.0-31.0); MEAN CORPUSCULAR HGB CONC 33.7 g/dL (32.0-36.0); MEAN CORPUSCULAR VOLUME 87.3 fL (80.0-94.0); MEAN PLATELET VOLUME 9.3 fL (7.4-11.4); MONOCYTES # (AUTO) 0.6 10^3/uL (0.0-1.0); MONOCYTES % (AUTO) 6.2 %; NEUTROPHILS # (AUTO) 5.4 10^3/uL (1.5-6.6); NEUTROPHILS % (AUTO) 60.4 %; PLT - PLATELET COUNT 297 10^3/uL (130-450); RED CELL DISTRIBUTION WIDTH 13.4 % (12.0-15.0); WHITE BLOOD COUNT 8.9 x10^3/uL (4.8-10.8)
[2023-10-05 18:06] LABS: BILIRUBIN,URINE NEGATIVE (NEGATIVE); GLUCOSE, URINE (UA) NEGATIVE (NEGATIVE); KETONES,URINE (UA) NEGATIVE (NEGATIVE); LEUKOCYTE ESTERASE, URINE NEGATIVE (NEGATIVE); NITRITE,URINE NEGATIVE (NEGATIVE); OCCULT BLOOD,URINE NEGATIVE (NEGATIVE); PROTEIN,URINE NEGATIVE (NEGATIVE); UROBILINOGEN,URINE 0.2 (NORMAL) E.U./dL (NORMAL)
[2023-10-05 18:15] LABS: BACTERIA,URINE None Seen /HPF (None Seen); CLARITY,URINE CLEAR (CLEAR); MUCUS,URINE Few Strands; RBC,URINE 0-5 /HPF (0-5); SQUAMOUS EPITHELIAL CELL,UR RARE Squamous (<= Few); WBC,URINE 0-3 /HPF (0-3)
[2023-10-05 18:32] LABS: ALBUMIN 3.9 g/dL (3.2-5.5); ALBUMIN/GLOBULIN RATIO 1.2 (1.0-2.2); ALKALINE PHOSPHATASE 63 IU/L (42-121); ALT ALANINE AMINOTRANSFERASE 25 IU/L (10-60); AST ASPARTATE AMINOTRANSFERASE 21 IU/L (10-42); BILIRUBIN,TOTAL 0.4 mg/dL (0.2-1.0); BUN - BLOOD UREA NITROGEN 17 mg/dL (6-20); CALCIUM 9.7 mg/dL (8.5-10.3); CARBON DIOXIDE - CO2 28 mmol/L (21-32); CHLORIDE 105 mmol/L (101-111); CHOL/HDL RATIO 4.5 (<5.0); CHOLESTEROL 139 mg/dL; GFR - MDRD 77 (>89); GLUCOSE 124 mg/dL (74-104); HDL CHOLESTEROL 31 mg/dL; LDL CHOLESTEROL,CALCULATED 64 mg/dL; LDL/HDL RATIO 2.1 (<3.6); POTASSIUM 3.8 mmol/L (3.5-4.5); SODIUM 138 mmol/L (135-145); TOTAL PROTEIN 7.1 g/dL (6.4-8.9); TRIGLYCERIDES 219 mg/dL (48-352); VLDL CHOLESTEROL 44 mg/dL
[2023-10-05 18:37] LABS: CREATININE,URINE 119.3 mg/dL
[2023-10-05 18:43] LABS: MICROALBUMIN,URINE < 0.7 mg/dL
[2023-10-05 21:05] LABS: ESTIMATED AVERAGE GLUCOSE 117 mg/dL (70-100); HEMOGLOBIN A1c% 5.7 % (4.27-6.07)
== END 2023-10-05 13:43 | disposition home or self-care (01) ==
LOC: LAB.N 13:42
PROVIDERS: ATTEND Nurse Practitioner Family
DX: E78.5 Hyperlipidemia, unspecified (principal); Z87.19 Personal history of other diseases of the digestive system; Z87.891 Personal history of nicotine dependence; R35.0 Frequency of micturition; E66.9 Obesity, unspecified; R39.11 Hesitancy of micturition
CPT/HCPCS: 36415; 80050; 80061; 81001; 82043; 82570; 83036; 83721; 84153

== ENCOUNTER 2024-03-01 21:14 | Emergency (ER) | payer MEDICAID ==
[2024-03-01 21:26] VITALS: O2SAT 98
--- NOTE | 2024-03-01 22:48 | ED Physician Documentation ---
History of Present Illness - Stated complaint Stated Complaint: R HIP/LEG PX - Chief complaint Chief Complaint: Ext Problem - History obtained from History obtained from: Patient - Additonal information Additional information: HPI from patient. Patient c/o atraumatic RLE pain, most pronounced at right hip but radiates to right anterolateral knee. Gradual onset 3 days ago without inciting event. Reid es back pain. patient indicates he has had similar pain in the past but never this persistent (typically resolves same day with periodic rest throughout the day). The pain has a partial component of exacerbation with movement involving lower back and/or right hip. Denies fever. Partially exacerbated (not completely reproduced) with weight-bearing on the RLE ; patient is able to weight-bear, and actually drove self to ED Review of Systems Constitutional: denies: Fever, Chills, Sweats Skin: denies: Rash Musculoskeletal: denies: Back pain Neurologic: denies: Focal weakness, Numbness PD PAST MEDICAL HISTORY - Past Medical History Past Medical History: Yes Cardiovascular: Other Respiratory: COPD, Sleep apnea, Other Neuro: None Endocrine/Autoimmune: None GI: Ulcers, Hiatal hernia, Chronic constipation, Hemorrhoids : None HEENT: None Psych: Depression Musculoskeletal: Other Derm: None - Past Surgical History Past Surgical History: Yes General: Colonoscopy, EGD - Present Medications Home Medications: Ambulatory Orders Medication Instructions Recorded Confirmed Albuterol [Ventolin Hfa] 1 inhaler PO Q4HR PRN 05/18/15 08/31/23 Fluticasone 44 Mcg [Flovent] 1 puffs PO DAILY 08/13/16 08/31/23 Fluticasone [Flonase] 1 sprays CLINT BID PRN #1 bottle 08/13/16 08/31/23 Omeprazole 40 mg PO DAILY 10/20/20 08/31/23 traZODone [Desyrel] 100 mg PO HS 10/20/20 08/31/23 Benztropine Mesylate 2 mg PO HS 08/31/23 08/31/23 Buspirone HCl 15 mg PO TID 08/31/23 08/31/23 Montelukast [Singulair] 10 mg PO QPM 08/31/23 08/31/23 Paliperidone [Invega] 9 mg PO HS 11/06/23 11/06/23 Tamsulosin [Flomax] 0.4 mg PO BID 08/31/23 08/31/23 Venlafaxine HCl [Effexor Xr] 150 mg PO DAILY 08/31/23 08/31/23 Cyclobenzaprine [Flexeril] 10 mg PO TID PRN #20 tablet 03/01/24 HYDROcod/ACETAM 5/325 [Siren 5/325] 1 - 2 tablet PO Q6H PRN #14 tablet 03/01/24 - Allergies Allergies/Adverse Reactions: Allergies Allergy/AdvReac Type Severity Reaction Status Date / Time haloperidol [From Haldol] Allergy Anaphylaxis Verified 03/01/24 21:21 metformin Allergy Cramps Verified 03/01/24 21:21 - Social History Does the pt smoke?: No Smoking Status: Never smoker Does the pt drink ETOH?: No Does the pt have substance abuse?: No - Immunizations Immunizations are current?: Yes - POLST Patient has POLST: No PD ED PE NORMAL - Vitals Vital signs reviewed: Yes - General General: Alert and oriented X 3, No acute distress, Well developed/nourished - Abdomen Abdomen: Soft, Non tender - Back Back: No CVA TTP, No spinal TTP - Derm Derm: Normal color, Warm and dry, No rash - Extremities Extremities: No calf tenderness / cord - Neuro Neuro: No motor deficit (5/5 bilateral plantar/dorsiflexion), No sensory deficit (LTS intact BLE) PD ED PE EXPANDED - Extremities Extremities: Pedal edema bilateral. No: Limited ROM (FROM right hip but some degree of reproducibility of his symptoms with full flexion, abduction), Red warm joint Results - Vitals Vitals: Oxygen O2 Source Room air - Rads (name of study) RLE venous US Relevant Findings:: Prelim report reviewed, See rad report PD Medical Decision Making - ED course Complexity details: reviewed results, re-evaluated patient, considered different ial, d/w patient ED course: atraumatic RLE pain. both legs are swollen, which he indicates is chronic although he thinks maybe worse last several days. he cannot say with confidence if the RLE pain is something he experiences on a chronic and/or recurrent basis, but somewhat similar discomfort has never lasted more than one day. RLE venous doppler US is negative for DVT. No findings on exam to support septic arthritis, occult/pathologic fracture. he is given take-home vicodin and rx vicodin and flexeril. Results d/w patient, return precautions reviewed, advised to follow up with PCP for reevaluation Departure - Departure Disposition: 01 Home, Self Care Clinical Impression: Sciatic leg pain Condition: Good Instructions: ED Sciatica Follow-Up: Letty Sanchez ARNP [Primary Care Provider] - Prescriptions: Cyclobenzaprine [Flexeril] 10 mg PO TID PRN #20 tablet PRN Reason: Spasms HYDROcod/ACETAM 5/325 [Siren 5/325] 1 - 2 tablet PO Q6H PRN #14 tablet PRN Reason: Pain Comments: There was no evidence of blood clot on the ultrasound of your right leg. Your description of your symptoms and the events leading up to them, as well as co nsidering the recurrent nature of your low back pain, are suggestive of worsening nerve impingement; when this pain radiates from the back down either or both legs, it is called sciatica. Contact her primary care provider to arrange for the next available appointment for reevaluation. In the meantime, I have electronically submitted prescriptions for Vicodin (narcotic/opiate pain medication) and cyclobenzaprine (muscle relaxant) to the [facility] pharmacy in [place]. I am prescribing a short course of narcotic pain medication for you. These are potentially dangerous and addictive medications that should be used carefully. These medications may constipate you. Take an [id number] stool softener (docusate) twice daily with plenty of water while taking these medications. If you go 24 hours without a bowel movement, take [id number] miralax, per package instructions. Do not drink or drive while taking these medications. If you received narcotic or sedating medications while in the emergency department, do not drive for 24 hours. Store this medication in a safe, secure place and out of reach of children. It is a violation of federal law to give or sell this medication to another person or to use in a manner other than prescribed. The ED will not refill narcotic prescriptions, including prescriptions lost or stolen. To dispose of unwanted medications: 1. [facility] at [address] in [place] has a medication drop box. They accept prescription medications (in pill form) Thursday through Thursday 9:00 a.m. to 5:00 p.m. 2. [facility] accepts prescription medications (in pill form only) for disposal year round. Call for more information. 3. Contact the [facility] for the next [facility] sponsored prescription drug collection event. , [phone], or [phone]; Discharge Date/Time: 03/01/24 23:56
--- NOTE | 2024-03-01 23:39 | Ultrasound Report ---
PROCEDURE: Duplex Ext Veins Right INDICATIONS: atraumatic RLE pain, swelling TECHNIQUE: Real-time imaging, as well as color and pulse Doppler interrogation, were performed of the lower extr emity deep veins from the inguinal ligament to the popliteal fossa. Attempted visualization of the ca lf veins was performed. COMPARISON: None. FINDINGS: The deep veins are normally compressible, and free of intraluminal thrombus. Color and pu lse Doppler demonstrate normal phasic intraluminal flow. There is normal augmentation response to di stal compression maneuver. IMPRESSION: No deep venous thrombosis of the visualized lower extremity. Reviewed by: Juanpablo Thomas MD on 03/01/2024 11:38 PM PDT Approved by: Juanpablo Thomas MD on 03/01/2024 11:38 PM PDT Station ID: [id number]
[2024-03-01] MEDS: CYCLOBENZAPRINE 10 MG Prepack 2 PO PRN (23:41)
[2024-03-01] MEDS: HYDROcod/ACET 5/325 Prepack 4 PO STA (23:41)
[2024-03-01] MEDS: DEXAMETHASONE 10 MG/ML VIAL PO STA (23:41)
[2024-03-01] MEDS: CHERRY SYRUP 10 ML UDC PO ONE (23:41)
[2024-03-02 00:08] VITALS: BP 137/90
== END 2024-03-01 23:56 | disposition home or self-care (01) ==
LOC: ED 21:14
DX: M54.31 Sciatica, right side (principal); M79.604 Pain in right leg; J44.9 Chronic obstructive pulmonary disease, unspecified; Z79.899 Other long term (current) drug therapy
CPT/HCPCS: 93971; 99283; 99284; A9270